=== PATIENT | male | born 1995 | race Caucasian/White ===

== ENCOUNTER 2016-11-29 15:53 | Emergency (ER) | payer OTHER ==
[~2016-11-29] VITALS: Ht 177.8 cm; Wt 77.1 kg
--- NOTE | ~2016-11-29 | EKG ---
PATIENT: LEELEE VILLELA UNIT #: [id number] Ventricular Rate: 79 BPM Atrial Rate: 79 BPM P-R Interval: 134 ms QRS Duration: 92 ms Q-T Interval: 372 ms QTC Calculation(Bezet): 426 ms P [place]: 77 degrees Calculated R Dors[place]: 90 degrees Calculated T [place]: 63 degrees Diagnosis Line: Normal sinus rhythm with sinus arrhythmia Diagnosis Line: Rightward axis Diagnosis Line: Borderline ECG Diagnosis Line: When compared with ECG of 12-OCT-2015 03:34, Diagnosis Line: No significant change was found Diagnosis Line: Confirmed by HEMALATHA HARDWICK MD ([id number]) on 11/30/2016 Diagnosis Line: 8:43:06 AM INTERPRETING MD: RONEN HERNANDEZ
[2016-11-29 19:52] LABS: BASOPHIL% 0.3 % (0-2.5); EOSINOPHIL% 0.1 % (0.0-7.0); HEMATOCRIT 52.4 % (38.0-50.0); HEMOGLOBIN 17.8 gm/dL (13.0-16.0); LYMPHOCYTE# 1.6 X10e3 (1.0-3.5); LYMPHOCYTE% 13.4 % (17.0-45.0); MEAN CELL VOLUME 87.9 FL (83-96); MEAN CORPUSCULAR HEMOGLOBIN 29.9 PG (28-34); MEAN PLATELET VOLUME 7.4 FL (6.5-11.5); MONOCYTE# 0.6 X10e3 (0-1.0); MONOCYTE% 4.6 % (3.0-12.0); NEUTROPHIL% 81.6 % (40-75); PLATELET COUNT 194 X10e3 (140-420); RED BLOOD COUNT 5.96 X10e (3.90-5.60); RED CELL DISTRIBUTION WIDTH 14.2 % (11.0-15.5); WHITE BLOOD COUNT 12.2 X10e3 (4.0-10.5)
[2016-11-29 19:53] LABS: DIFF IND NO
[2016-11-29 20:16] LABS: BILIRUBIN, DIRECT 0.1 mg/dL (0.0-0.2); BILIRUBIN,INDIRECT 0.9 mg/dL (0.0-0.9); CALCIUM SERUM 9.9 mg/dL (8.4-10.2); CREATININE SERUM 0.9 mg/dL (0.6-1.4); GLOM FILT RATE Estimated 122.5 mL/min (>60); POTASSIUM 3.5 mmol/L (3.5-5.1); PROTEIN TOTAL SERUM 8.9 g/dL (6.0-8.3)
== END 2016-11-29 21:19 | disposition home or self-care (01) ==
LOC: CED 15:53
DX: R53.1 Weakness (principal); F41.9 Anxiety disorder, unspecified; F17.200 Nicotine dependence, unspecified, uncomplicated
CPT/HCPCS: 36415; 80048; 80076; 82947; 85025; 93005; 96360; 99284